=== PATIENT | male | born 1995 | race Asian ===

== ENCOUNTER 2021-04-02 15:56 | Emergency (ER) | payer OTHER ==
[~2021-04-02] VITALS: Ht 167.6 cm; Wt 63.5 kg
[2021-04-02 17:12] LABS: PLATELET COUNT 218 K/uL (142-355)
[2021-04-02 17:22] LABS: POTASSIUM 3.9 mmol/L (3.6-5.2)
[2021-04-02 18:07] VITALS: BP 128/81; TEMP 98.9
== END 2021-04-02 18:10 | disposition home or self-care (01) ==
LOC: ED 15:56
PROVIDERS: Emergency Medicine Emergency Medical Services
DX: Z20.2 Contact with and (suspected) exposure to infections with a predominantly sexual mode of transmission (principal); R11.0 Nausea
CPT/HCPCS: 80053; 81000; 83690; 85027; 87490; 87590; 96372; 99283; J0696

== ENCOUNTER 2021-06-19 14:09 | Emergency (ER) | payer OTHER ==
[~2021-06-19] VITALS: Ht 167.6 cm; Wt 63.5 kg
[2021-06-19 15:20] VITALS: BP 132/83; TEMP 97.6
== END 2021-06-19 15:20 | disposition home or self-care (01) ==
LOC: ED 14:09
DX: Z20.2 Contact with and (suspected) exposure to infections with a predominantly sexual mode of transmission (principal)
CPT/HCPCS: 81000; 87490; 87590; 96372; 99283; J0696

== ENCOUNTER 2023-02-05 19:13 | Emergency (ER) | payer OTHER ==
[~2023-02-05] VITALS: Ht 170.2 cm; Wt 63.5 kg
[2023-02-05 19:13] VITALS: BP 115/96; TEMP 98
== END 2023-02-05 20:50 | disposition home or self-care (01) ==
LOC: ED 19:13
DX: R36.9 Urethral discharge, unspecified (principal); F17.210 Nicotine dependence, cigarettes, uncomplicated
CPT/HCPCS: 96372; 99283; J0696